=== PATIENT | female | born 1970 | race Caucasian/White ===

== ENCOUNTER → 2020-05-31 | Outpatient (CLI) | payer BC ==
--- NOTE | 2020-05-31 13:02 | RAD ---
EXAM: Bilateral screening mammogram. HISTORY: 49-year-old female presents for screening mammography. TECHNIQUE: Full-field digital craniocaudal, exaggerated craniocaudal and mediolateral oblique views o f both breasts are obtained for evaluation. Computer aided detection was applied. COMPARISON: None. This is a baseline mammogram. BREAST PARENCHYMAL DENSITY: Level C - Heterogeneously dense. FINDINGS: There is a circumscribed mass within the 3:00 position of the left breast at mid to posteri or depth. There are asymmetries within the posterior inferior aspect of the left breast in the mediol ateral oblique projection and the posterior upper outer quadrant of the right breast in the mediolate ral oblique and exaggerated craniocaudal projections. No architectural distortion or suspicious calci fication is seen. IMPRESSION: BI-RADS Category 0: Incomplete. Additional imaging needed. RECOMMENDATION: Further evaluation with full field true lateral views of both breasts and spot compre ssion views of asymmetry is within both breasts is recommended. Sonographic imaging of the left breas t to assess a mass at the 3:00 position is also recommended. Sonographic imaging of the right breast may be performed if deemed indicated based on additional mammographic findings. If your mammogram demonstrates that you have dense breast tissue, which could hide abnormalities, and if you have other risk factors for breast cancer that have been identified, you might benefit from s upplemental screening tests that may be suggested by your ordering physician. Dense breast tissue, i n and of itself, is a relatively common condition. This information is not provided to cause undue c oncern, but rather to raise your awareness and to promote discussion with your physician regarding th e presence of other risk factors, in addition to dense breast tissue. A report of your mammography re sults will be sent to you and your physician. You should contact your physician if you have any ques tions or concerns regarding this report. Mammography is a sensitive method for finding small breast cancers, but it does not detect them all a nd is not a substitute for careful clinical examination. A negative mammogram does not negate a clin ically suspicious finding and should not result in delay in biopsying a clinically suspicious abnorma lity. PQRS compliance statement - Patient information was entered into a reminder system with a target due date for the next mammogram. "Our facility is accredited by the [employer] Mammography Program." Electronically signed by: Ally Maradiaga MD (05/31/2020 12:57 PM) [id number]
== END ==
LOC: MAMMO 10:50
PROVIDERS: ATTEND Obstetrics & Gynecology
DX: Z12.31 Encounter for screening mammogram for malignant neoplasm of breast (principal)
CPT/HCPCS: 77067